=== PATIENT | female | born 1970 | race Caucasian/White ===

== ENCOUNTER → 2020-03-04 14:08 | Outpatient (BNVA) | payer SELFPAY | PROVIDERS: Family Provider Nurse Practitioner; Visit Provider Nurse Practitioner Family | DX: R30.0 Dysuria (principal); N39.0 Urinary tract infection, site not specified; N30.00 Acute cystitis without hematuria | CPT/HCPCS: 81003 ==

== ENCOUNTER 2021-01-12 06:35 | Emergency (ER) | payer SELFPAY ==
[2021-01-12] MEDS: EPINEPHrine 0.1 mg/mL SYR 10 mL IVP ×6 (06:36→06:55)
[2021-01-12] MEDS: sodium chloride 0.9% 1,000 ML 999 ML IV ×2 (06:51→09:04)
[2021-01-12] MEDS: sodium bicarbonate 1 mEq/mL SDV 50mL 100 MEQ IV (06:55)
[2021-01-12] MEDS: calcium chloride 10% Syr 10 mL 1 GM IVP (06:56)
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
--- NOTE | 2021-01-12 07:13 | PC.NURSE ---
INSTRUCTED BY CHARGE NURSE KATLYN GLOVERPCT CALLING CHYNA.
[2021-01-12 07:23] VITALS: BP 0/0; PULSE 0; RESP 0; O2SAT 0; BMI 23.1
--- NOTE | 2021-01-12 07:43 | PC.NURSE ---
[facility] NO GLOVER AND DR. TRIANA ALL TUBES AND DRAINS REMOVED. VERBAL ORDER FROM NO TO HOLD ON CALLING ORGAN DONATION UNTIL PT IS POSITIVELY IDENTIFIED.
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
--- NOTE | 2021-01-14 00:55 | PC.NURSE ---
Refer to Cardiopulmonary Arrest Flow Sheet for Code Blue notes.
--- NOTE | 2021-01-14 00:57 | PC.NURSE ---
MTS notified of pt at approximately
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
--- NOTE | 2021-01-14 01:02 | PC.NURSE ---
[employer] [employer] Officer responded to ER with probable ID of pt as Eliza Paulino. Body released to aircraft detail draftsperson at 0815.
== END 2021-01-12 10:00 | disposition expired ==
PROVIDERS: Emergency Provider Family Medicine
DX: S27.2XXA Traumatic hemopneumothorax, initial encounter (principal); S82.201A Unspecified fracture of shaft of right tibia, initial encounter for closed fracture; S82.401A Unspecified fracture of shaft of right fibula, initial encounter for closed fracture; F17.210 Nicotine dependence, cigarettes, uncomplicated; V89.2XXA Person injured in unspecified motor-vehicle accident, traffic, initial encounter
CPT/HCPCS: 32551; 86900; 86920; 96365; 96375; 99285; 99291; J0171; J3490; J7030; P9016